=== PATIENT | male | born 1970 | race Hispanic/Latino ===

== ENCOUNTER 2016-09-21 07:12 | Day surgery (SDC) | payer OTHER ==
[2016-09-21] MEDS ORDERED: Lactated Ringer's 500 ML IV ONE (07:35)
[2016-09-21 07:42] VITALS: BMI 28.5
[2016-09-21] MEDS ORDERED: Midazolam 2 MG/2 ML VIAL ONE (08:01)
[2016-09-21] MEDS ORDERED: Propofol 10 mg/ml Inj (20 ML) ONE (08:02)
[2016-09-21 09:31] VITALS: BP 106/73; PULSE 61; RESP 17; TEMP 96.9; O2SAT 99
== END 2016-09-21 13:46 | disposition home or self-care (01) ==
LOC: H.ENDO 07:12
PROVIDERS: ATTEND Internal Medicine Gastroenterology
DX: K64.0 First degree hemorrhoids (principal); J45.909 Unspecified asthma, uncomplicated; F17.200 Nicotine dependence, unspecified, uncomplicated; K50.80 Crohn's disease of both small and large intestine without complications; K30 Functional dyspepsia; K44.9 Diaphragmatic hernia without obstruction or gangrene

== ENCOUNTER 2016-10-03 13:47 | Emergency (ER) | payer OTHER ==
[2016-10-03 13:47] VITALS: BMI 28.5
[2016-10-03 13:59] VITALS: BP 123/84; PULSE 81; RESP 20; TEMP 98.4; O2SAT 97
[2016-10-03] MEDS ORDERED: Naproxen 500 MG TAB PO STA (14:15)
[2016-10-03] MEDS ORDERED: Naproxen 500 MG TAB PO ONE (14:18)
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
--- NOTE | 2016-10-03 15:47 | US ---
PROCEDURE: Right lower extremity venous duplex Doppler. HISTORY: Right leg pain COMPARISON: None available. TECHNIQUE: Common femoral, superficial femoral, popliteal and posterior tibial veins were evaluated. Flow was assessed with color Doppler, compressibility, assessment of phasic flow and augmentation response. FINDINGS: COMMON FEMORAL VEIN: Normal flow and compressibility. SUPERFICIAL FEMORAL VEIN: Normal flow and compressibility. POPLITEAL VEIN: Normal flow and compressibility. POSTERIOR TIBIAL VEIN: Normal flow and compressibility. OTHER FINDINGS: None. IMPRESSION: No evidence of deep venous thrombosis in the right lower extremity.
--- NOTE | 2016-10-03 16:40 | RAD ---
PROCEDURE: Radiographs of the right tibia and fibula. HISTORY: leg pain COMPARISON: None available. TECHNIQUE: Frontal and lateral views obtained. FINDINGS: BONES: No fracture or destructive lesion. JOINT SPACES: Unremarkable. OTHER FINDINGS: None. IMPRESSION: Unremarkable radiographs of the right tibia and fibula.
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
--- NOTE | 2016-10-04 10:47 | MRI ---
PROCEDURE: MRI Right Ankle HISTORY: Pain. COMPARISON: MRI right tibia and fibula performed same day. Right tibia-fibula radiographs performed same day.. TECHNIQUE: Multiecho multiplanar sequences were performed through the right ankle without the use of intravenous contrast. FINDINGS: ANTERIOR EXTENSOR TENDONS: Unremarkable. MEDIAL FLEXOR TENDONS: Trace fluid about the posterior tibial tendon, consistent with a mild tenosynovitis. Remainder of the medial flexor tendons are unremarkable.. PERONEAL TENDONS: Unremarkable. ANTERIOR INFERIOR TIBIOFIBULAR (SYNDESMOSIS): Intact. POSTERIOR INFERIOR TIBIOFIBULAR (SYNDESMOSIS): Intact. ANTERIOR TALOFIBULAR LIGAMENT: Intact. POSTERIOR TALOFIBULAR LIGAMENT: Intact. PLANTAR FASCIA: Unremarkable. SINUS TARSI: Unremarkable. ACHILLES TENDON: Intact. DELTOID LIGAMENT COMPLEX - DEEP: Intact. CALCANEOFIBULAR LIGAMENT: Intact. SPRING (PLANTAR CALCANEO-NAVICULAR) LIGAMENT: Intact. BONES: There are areas of increased T2, decreased T1 signal within the distal tibia, posterior calcaneus, and posterior talus. Findings consistent with bone infarcts. There is an osteochondral lesion of the posterior lateral talar dome measuring 8 mm. CARTILAGE: See above. JOINT FLUID: There is no significant ankle joint effusion. MUSCLES: Unremarkable. OTHER FINDINGS: None . 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 Osteochondral lesion of the posterior lateral talar dome.. Mild tenosynovitis posterior tibial tendon. Preliminary impression was provided by [facility]. Major Findings are concordant.
--- NOTE | 2016-10-04 11:05 | MRI ---
PROCEDURE: MRI right tibia-fibula without contrast. HISTORY: right leg (heel to calf) COMPARISON: MRI right ankle and right tibia fibula radiographs performed same day. TECHNIQUE: Multisequence multiplanar, T1 and T2-weighted images of the right tibia-fibula were acquired without contrast. Coronal T1 and STIR images of both tibia-fibulas was included for contralateral side comparison. FINDINGS: Increased T2, decreased T1 signal noted in the distal aspects of both tibias, right talus, and right calcaneus, consistent with bone infarcts. There is an osteochondral lesion of the posterior lateral talar dome measuring 8 mm. Edema noted within the medial gastrocnemius muscle, consistent with a strain; partial tear could also be considered. . Fluid also noted adjacent to the distal portion of the muscle and deep to the muscle. Visualized tendons are intact. Subcutaneous soft tissues are unremarkable. IMPRESSION: Muscle strain versus partial tear of the medial gastrocnemius muscle. Fluid also noted about the distal portion of muscle and deep to the muscle. Bone infarcts in the bilateral distal tibias, right talus, and right calcaneus. Osteochondral lesion posterior lateral talar dome. Preliminary impression was provided by [facility]. Findings are concordant.
== END 2016-10-03 19:52 | disposition home or self-care (01) ==
LOC: H.ER 13:47
DX: S86.811A Strain of other muscle(s) and tendon(s) at lower leg level, right leg, initial encounter (principal); Y04.0XXA Assault by unarmed brawl or fight, initial encounter; Y92.89 Other specified places as the place of occurrence of the external cause; B20 Human immunodeficiency virus [HIV] disease; M65.9 Synovitis and tenosynovitis, unspecified